=== PATIENT | female | born 1950 | race African-American/Black ===

== ENCOUNTER 2017-09-08 09:00 | Outpatient (RCR) | payer OTHER | END 2017-09-20 | disposition home or self-care (01) | LOC: PTY 09:00 → MERGE 09:00 | DX: N64.89 Other specified disorders of breast (principal) ==

== ENCOUNTER 2017-10-06 08:00 | Outpatient (RCR) | payer OTHER | END 2017-10-18 | disposition home or self-care (01) | LOC: PTY 08:00 | DX: N64.89 Other specified disorders of breast (principal) ==

== ENCOUNTER 2017-10-25 12:30 | Outpatient (RCR) | payer OTHER | END 2017-11-18 | disposition home or self-care (01) | LOC: PTY 12:30 | DX: N64.89 Other specified disorders of breast (principal); I89.0 Lymphedema, not elsewhere classified ==

== ENCOUNTER 2017-11-24 07:50 | Outpatient (RCR) | payer OTHER | END 2017-12-18 | disposition home or self-care (01) | LOC: PTY 07:50 | DX: N64.89 Other specified disorders of breast (principal); I89.0 Lymphedema, not elsewhere classified ==

== ENCOUNTER 2017-12-22 07:55 | Outpatient (RCR) | payer OTHER | END 2018-01-18 | disposition home or self-care (01) | LOC: PTY 07:55 | DX: N64.89 Other specified disorders of breast (principal); I89.0 Lymphedema, not elsewhere classified ==